=== PATIENT | male | born 1985 | race Hispanic/Latino ===

== ENCOUNTER 2017-02-10 19:51 | Emergency (ER) | payer OTHER ==
[~2017-02-10] VITALS: Ht 172.7 cm; Wt 87.9 kg
[2017-02-10 20:01] VITALS: BP 158/84
== END 2017-02-10 22:39 | disposition home or self-care (01) ==
LOC: M ED 19:51
DX: S51.011A Laceration without foreign body of right elbow, initial encounter (principal); I10 Essential (primary) hypertension; W45.8XXA Other foreign body or object entering through skin, initial encounter; Y92.008 Other place in unspecified non-institutional (private) residence as the place of occurrence of the external cause; Y99.9 Unspecified external cause status; Y93.9 Activity, unspecified

== ENCOUNTER → 2018-04-14 | Outpatient (CLI) | payer OTHER | LOC: M RAD 12:13 | DX: J34.2 Deviated nasal septum (principal) | CPT/HCPCS: 70486 ==

== ENCOUNTER → 2018-08-18 | Outpatient (CLI) | payer OTHER ==
--- NOTE | 2018-08-18 09:47 | REP ---
MAXILLOFACIAL CT STUDY WITHOUT CONTRAST: HISTORY: Chronic maxillary sinusitis. COMPARISON STUDY: April 14, 2018. CT FINDINGS: There is a 2 cm mucous retention cyst in the floor the right maxillary sinus again noted unchanged. Mild mucosal thickening is seen in the left maxillary sinus. This is similar to the prior study as well. There is an aerated elisabeth bullosa on the right unchanged. There is mucosal thickening partially narrowing the ostium on the left OMC. OMCs are otherwise patent. Bony nasal septum deviates slightly to the left without a discernible beak. The nasal ethmoid recesses appear clear. Otherwise the paranasal sinuses are clear. There is no evidence of nasal polyp. IMPRESSION: Mucosal changes bilateral maxillary sinuses as above. Essentially unchanged. Electronically Signed by Bhavin Raygoza MD 08/18/2018 10:00 A
== END ==
LOC: M RAD 06:54
PROVIDERS: ATTEND Otolaryngology
DX: J32.0 Chronic maxillary sinusitis (principal)

== ENCOUNTER → 2018-09-03 | Outpatient (REF) | payer OTHER ==
[2018-09-03 14:30] LABS: SEMEN APPEARANCE OPAQUE (OPAQUE); SEMEN VISCOSITY LIQUID (LIQUID); SEMEN VOLUME 2.6 ml (4.0-5.0); SPERM CONCENTRATION 41.9 M/ml (>=15.0); WBC CONCENTRATION >1 M/ml (<=1 M/ml)
== END ==
LOC: M LAB REF 13:16
PROVIDERS: ATTEND Family Medicine
DX: Z31.41 Encounter for fertility testing (principal)

== ENCOUNTER 2019-01-04 18:55 | Emergency (ER) | payer OTHER ==
[~2019-01-04] VITALS: Ht 172.7 cm; Wt 81.8 kg
[2019-01-04] MEDS ORDERED: [UNRECOGNIZED DRUG - REMARK] (19:02)
[2019-01-04] MEDS ORDERED: GI COCKTAIL 50ML BTL(HYOSCYAMINE/MAALOX/LIDOCAINE VISCOUS)(1:3:1) PO ONE (19:45)
[2019-01-04] MEDS ORDERED: NS 1,000 ML IV ONE (20:15)
[2019-01-04] MEDS ORDERED: KETOROLAC 30 MG/ML VIAL (J1885) IV ONE (20:15)
[2019-01-04 21:04] LABS: BASO % 0.6 % (0.0-1.0); EOS # 0.2 10^3/uL (0.0-0.50); EOS % 2.5 % (0.0-3.0); HEMATOCRIT 45.7 % (42.0-52.0); HEMOGLOBIN 15.8 g/dl (13.5-17.5); LYMPH # 2.3 10^3/uL (1.5-4.5); LYMPH % 33.2 % (24.0-44.0); MEAN CORPUSCULAR HEMOGLOBIN 31.3 pg (27.0-33.0); MEAN CORPUSCULAR HGB CONC 34.6 g/dl (32.0-36.5); MEAN CORPUSCULAR VOLUME 90.7 fl (80.0-96.0); MONO # 0.6 10^3/uL (0.0-0.8); MONO % 8.1 % (0.0-5.0); NEUTROPHILS # 3.8 10^3/uL (1.8-7.7); NEUTROPHILS % 55.5 % (36.0-66.0); PLATELET COUNT, AUTOMATED 267 10^3/uL (150-450); RED BLOOD COUNT 5.04 10^6/uL (4.30-6.10); WHITE BLOOD COUNT 6.8 10^3/uL (4.0-10.0)
[2019-01-04 21:26] LABS: ALBUMIN 4.6 GM/DL (3.2-5.2); ALT/SGPT 33 U/L (12-78); BILIRUBIN,DIRECT 0.2 MG/DL (0.0-0.2); BILIRUBIN,TOTAL 0.5 MG/DL (0.2-1.0); BLOOD UREA NITROGEN 11 MG/DL (7-18); CARBON DIOXIDE LEVEL 28 MEQ/L (21-32); CHLORIDE LEVEL 103 MEQ/L (98-107); GLOMERULAR FILTRATION RATE > 60.0 (>60); GLUCOSE, FASTING 93 MG/DL (70-100); LIPASE 146 U/L (73-393); POTASSIUM SERUM 3.8 MEQ/L (3.5-5.1); SODIUM LEVEL 137 MEQ/L (136-145); TOTAL PROTEIN 7.8 GM/DL (6.4-8.2)
[2019-01-04 22:23] LABS: APPEARANCE, URINE HAZY (CLEAR); BACTERIA, URINE AUTO NEGATIVE (NEGATIVE); BILIRUBIN, URINE AUTO NEGATIVE (NEGATIVE); BLOOD, URINE BLOOD NEGATIVE (NEGATIVE); CALCIUM OXALATE CRYSTALS SMALL; COLOR, URINE YELLOW (YELLOW); GLUCOSE, URINE (UA) AUTO NEGATIVE (NEGATIVE); KETONE, URINE AUTO NEGATIVE (NEGATIVE); LEUKOCYTE ESTERASE, URINE AUTO NEGATIVE (NEGATIVE); MUCUS, URINE SMALL (NEGATIVE); NITRITE, URINE AUTO NEGATIVE (NEGATIVE); PROTEIN, URINE AUTO NEGATIVE (NEGATIVE); RBC, URINE AUTO 0 /HPF (0-3); SPECIFIC GRAVITY URINE AUTO 1.015 (1.002-1.035); SQUAMOUS EPITHELIAL CELL UR AU 0 /HPF (0-6); UROBILINOGEN, URINE AUTO 0.2 mg/dL (0.0-2.0); WBC, URINE AUTO 0 /HPF (0-3)
[2019-01-04] MEDS ORDERED: CARA1TAB6 PO ×2 (22:45→22:46)
[2019-01-04] MEDS ORDERED: FAMOTIDINE 20 MG TAB PO ONE (22:45)
[2019-01-04] MEDS ORDERED: PEPC1TAB5 PO ×2 (22:45→22:46)
[2019-01-04] MEDS ORDERED: OMEP40CA2 PO ×2 (22:45→22:46)
[2019-01-04] MEDS ORDERED: SUCRALFATE 1 GM TAB PO ONE (22:45)
[2019-01-04 23:26] VITALS: BP 134/90
--- NOTE | 2019-01-05 07:30 | REP ---
Acute abdominal series three views including AP chest and supine upright views of the abdomen: There are no comparisons. PA chest: Lung weber are clear. Cardiac size is normal. The truong, mediastinum, and skeletal structures are unremarkable. There is no free subdiaphragmatic air. Impression: Negative PA chest. Abdomen, supine upright views: The bowel gas pattern is normal. There is a single calcification in the pelvis on the left, phlebolith versus ureteral. There are no foreign bodies. The skeletal structures and soft tissues otherwise are unremarkable. Impression: Single nonspecific calcification in the pelvis. Normal bowel gas pattern. Electronically Signed by Partha Webster MD 01/05/2019 07:21 A
== END 2019-01-04 23:31 | disposition home or self-care (01) ==
LOC: M ED 18:55
DX: R10.13 Epigastric pain (principal); K21.9 Gastro-esophageal reflux disease without esophagitis; R00.2 Palpitations
CPT/HCPCS: 74021; 80048; 80076; 81001; 83690; 85025; 96374; 99284; J1885